=== PATIENT | female | born 1995 | race Caucasian/White ===

== ENCOUNTER 2021-10-09 17:52 | Emergency (ER) | payer MEDICAID, SELFPAY ==
--- NOTE | 2021-10-09 18:00 | HMH.EDUTC ---
[facility] [place] Clinical Impression: Pharyngitis Qualifiers: Pharyngitis/tonsillitis etiology: unspecified etiology Qualified Code(s): J02.9 - Acute pharyngitis, unspecified Otitis media Qualifiers: Otitis media type: suppurative Chronicity: acute Laterality: bilateral Recurrence: non-recurrent Spontaneous tympanic membrane rupture: without spontaneous rupture Qualified Code(s): H66.003 - Acute suppurative otitis media without spontaneous rupture of ear drum, bilateral Contact dermatitis Qualifiers: Contact dermatitis trigger: unspecified trigger Disposition: Home, Self-Care Condition on Discharge: Good Instructions: Middle Ear Infection, DI for Pharyngitis/Tonsillopharyngitis -- Adult, Preventing the Spread of Coronavirus Discharge Instructions Additional Instructions: Drink plenty of fluids. Take tylenol or ibuprofen for pain or fever. Take the medications as directed. Follow up with your regular doctor. GO TO THE ER FOR ANY WORSENING SYMPTOMS The triamcinolone cream is a steroid cream for the rash on your belly. Prescriptions: Brompheniramine/Pseudoephed/Dm [Bromfed Dm Cough Syrup] 5 ml PO Q6HP PRN #240 ml PRN Reason: Cough Transmission Status: Received by [id number] methylPREDNISolone [Medrol] 4 mg PO DIRECTED 6 Days #21 packet Transmission Status: Received by [id number] Triamcinolone Acetonide 1 applicatio TP TIDP PRN 7 Days #1 gm PRN Reason: Itching Transmission Status: Received by [id number] Azithromycin [Z-Anthony 250mg Tab*] 250 mg PO UD DOSE PK #6 tab Transmission Status: Received by [id number] Referrals: Provider,Referral, [Primary Care Provider] - Time of Disposition: 18:35 Medical Decision Making - Medical Records Medical records reviewed: No: I reviewed the patient's medical records. - Buzz Inquiry Pt receiving controlled substance: No Vital Signs: 10/09/21 18:05 10/09/21 18:36 Temperature 98.8 F 98.8 F Temperature Source Oral Pulse Rate 97 H Pulse Rate [Left] 97 H Respiratory Rate 16 16 Blood Pressure 139/75 Blood Pressure [Right Arm] 139/75 Blood Pressure Mean [Right Arm] 96 02 Sat by Pulse Oximetry 98 - Lab Data Lab results reviewed: Yes: I reviewed the patient's lab results. Lab Results 10/09/21 18:00: Group A Strep Rapid Negative Orders (Tests/Meds): ORDERS Category Date Time Status Strep Screen Confirmation Stat Micro 10/09/21 18:00 Received [facility] [place] - General Stated complaint: sore throat, bilateral earache, Time Seen by Provider: 10/09/21 18:23 - History of Present Illness Provider Complaint: She states that for the past 2 days she has had worsening bilateral ear pain, sore throat and she has felt bad. She has a nonproductive cough and chest congestion also. She denies shortness of breath. - Related Data Previous Rx's Medication Instructions Recorded methylprednisolone 4 mg tablets in See Rx Instructions PO PER PKG DIR 01/18/18 a dose pack #21 tab Azithromycin [Z-Anthony 250mg Tab*] 250 mg PO UD DOSE PK #6 tab 10/09/21 Brompheniramine/Pseudoephed/Dm 5 ml PO Q6HP PRN #240 ml 10/09/21 [Bromfed Dm Cough Syrup] Triamcinolone Acetonide 1 applicatio TP TIDP PRN 7 Days #1 10/09/21 gm methylPREDNISolone [Medrol] 4 mg PO DIRECTED 6 Days #21 10/09/21 packet Allergies Allergy/AdvReac Type Severity Reaction Status Date / Time amoxicillin Allergy Verified 10/09/21 18:08 Penicillins Allergy Verified 10/09/21 18:08 [facility] History - Hepatitis A Screen Attestation statement:: This patient has been screened for Hepatitis A risk factors. I have reviewed the patient's past medical history: Yes Comment: none Other Surgeries: Yes: No Previous Surgery - Social History Smoking Status: Current every day smoker Tobacco Type: cigarettes Alcohol Intake: never Substance Use Type: denies use Family Hx:: Cancer ROS Obtained: Yes All systems reviewed & no ad
[2021-10-09 18:05] VITALS: BP 139/75; PULSE 97; RESP 16; TEMP 37.1; O2SAT 98; BMI 36.8
[2021-10-09 18:18] LABS: Strep Scrn Group A (Rapid) Negative (Negative)
[2021-10-09 18:36] VITALS: BP 139/75; PULSE 97; RESP 16; TEMP 37.1
== END 2021-10-09 18:43 | disposition home or self-care (01) ==
PROVIDERS: Emergency Provider Nurse Practitioner Family
DX: J02.9 Acute pharyngitis, unspecified (principal); H66.003 Acute suppurative otitis media without spontaneous rupture of ear drum, bilateral
CPT/HCPCS: 87430; 99212; G0463

== ENCOUNTER 2021-12-17 10:17 | Emergency (ER) | payer MEDICAID, SELFPAY ==
[2021-12-17 10:34] VITALS: BP 129/77; PULSE 66; RESP 17; TEMP 36.8; O2SAT 98; BMI 40.3
--- NOTE | 2021-12-17 10:49 | EXP.UTC ---
Discharge Plan Disposition Patient Disposition: Home, Self-Care Condition: Good Prescriptions Prescriptions: New prednisone 20 mg tablet 20 mg PO BID Qty: 10 0RF benzonatate 200 mg capsule 200 mg PO TID PRN (Reason: cough) Qty: 20 0RF No Action methylprednisolone [Medrol (Anthony)] 4 mg tablets,dose pack See Rx Instructions PO PER PKG DIR Qty: 21 0RF Dose Instruction: PO PER PKG DIR Rx Instructions: PO PER PKG DIR azithromycin 250 MG tablet 250 mg PO UD DOSE PK Qty: 6 0RF Rx Instructions: Take two (2) tablets today, then one (1) tablet days #2 thru #5 methylprednisolone 4 MG tablets,dose pack 4 mg PO DIRECTED 6 Days Qty: 21 0RF jaokwdqqrwcubxw-yitkflnyu-EZ 118 ML syrup 5 ml PO Q6HP PRN (Reason: Cough) Qty: 240 0RF triamcinolone acetonide 15 GM cream 1 applicatio TP TIDP PRN (Reason: Itching) 7 Days Qty: 1 0RF Rx Instructions: 0.025% Referrals Follow up/Referrals: Provider,Referral, MD [Primary Care Provider] - See instructions Activity Restrictions/Add. Instructions Additional Instructions/Restrictions: You have been tested for COVID19. Please isolate yourself as if you are positive until test results received. Current CDC guidelines are quarantine X 5 days from onset of symptoms, with an additional 5 days of mask wearing at all times. If you have difficulty breathing, signs of dehydration, etc please seek treatment at ER. Clinical Impressions Clinical Impression: Close exposure to 2019 novel coronavirus Stand Alone Forms Stand Alone Forms: Work/School Release Instructions Patient Instructions: DI for COVID-19 (Suspected or Confirmed ) Discharge ED Provider: Rachelle Meraz [facility] [place] HPI General Stated complaint: Cough, covid exposure, covid test Mode of Arrival: Ambulatory Source of Information: Patient Limitations: No Limitations Time Seen by Provider: 12/17/21 11:03 Description of Symptoms (Recalled from Triage Doc. by RN): pt comes in with c/o productive cough, fever, headache, shortness of air. symptoms began 2 days ago. pts son has a lung infection and pts mother in law has covid. HEENT Symptoms (Recalled from RN notes): Yes Resp Symptoms (Recalled from RN notes): Yes Skin Symptoms (Recalled from RN notes): No MS Symptoms (Recalled from RN notes): No Functional Status (Recalled from RN notes): n/a History of Present Illness Provider Complaint: Cough, congestion, headache x 2 days. No fever. Mother in law has COVID19. Denies nausea, vomiting, diarrhea. Onset (ago): day(s) (2) Relieving factors: none Exacerbating factors: none Associated symptoms: cough and headaches Treatments prior to arrival: none Related Data Previous Rx's Medication Instructions Recorded methylprednisolone 4 mg tablets in See Rx Instructions PO PER PKG DIR 01/18/18 a dose pack (Medrol (Anthony)) #21 tabs azithromycin 250 mg tablet 250 mg PO UD DOSE PK #6 tabs 10/09/21 pulmtuhnnmuwegq-dyweyhtcfkhxxsg-CD 5 ml PO Q6HP PRN Cough #240 mL 10/09/21 2 mg-30 mg-10 mg/5 mL oral syrup methylprednisolone 4 mg tablets in 4 mg PO DIRECTED 6 days #21 10/09/21 a dose pack packets triamcinolone acetonide 0.025 % 1 applicatio topical TIDP PRN 10/09/21 topical cream Itching 7 days ##1 benzonatate 200 mg capsule 200 mg PO TID PRN cough #20 caps 12/17/21 prednisone 20 mg tablet 20 mg PO BID #10 tabs 12/17/21 Allergies Allergy/AdvReac Type Severity Reaction Status Date / Time amoxicillin Allergy Verified 12/17/21 10:45 Penicillins Allergy Verified 12/17/21 10:45 Worker's Comp Is this a Worker's Comp case?: No PFSH PFSH Social History Smoking Status: Current every day smoker tobacco type: cigarettes alcohol intake: never substance use type: denies use current occupational status: employed Travel in the last 8 weeks: None ROS Obtained: Yes All systems reviewed & no additional complaints ex
[2021-12-17 11:14] VITALS: BP 129/77; PULSE 66; RESP 17; TEMP 36.8
== END 2021-12-17 11:15 | disposition home or self-care (01) ==
PROVIDERS: Emergency Provider Physician Assistant
DX: R05.9 Cough, unspecified (principal); Z20.822 Contact with and (suspected) exposure to COVID-19
CPT/HCPCS: 99283; C9803; U0003; U0005

== ENCOUNTER 2022-01-02 02:27 | Emergency (ER) | payer MEDICAID, SELFPAY ==
[2022-01-02 02:29] VITALS: BP 146/103; PULSE 89; RESP 16; TEMP 36.9; O2SAT 99; BMI 40.3
[2022-01-02 03:29] LABS: Appearance,Urine SL CLOUDY (Clear); Bilirubin,Urine Negative (Negative); Blood, Urine Negative (Negative); Color,Urine YELLOW (Yellow); Glucose,Urine (UA) Negative (Negative); Ketones,Urine Negative (Negative); Leukocyte Esterase,Urine TRACE (Negative); Microscopic, Urine URINE MICROSCOPIC (MICROSCOPIC); Nitrate,Urine Negative (Negative); Protein,Urine Negative (Negative); Specific Gravity, Urine 1.025 (1.005-1.030); Urobilinogen,Urine 0.2 EU/dl (0.2)
--- NOTE | 2022-01-02 03:29 | PC.NURSE ---
MD AT BEDSIDE FOR EVAL AND PERFORMED I&D. PT TOLERATED WELL. DRAINAGE NOTED.
--- NOTE | 2022-01-02 03:30 | HMH.EDGENADL ---
Discharge Plan Disposition Patient Disposition: Home, Self-Care Condition: Good Prescriptions Prescriptions: New sulfamethoxazole-trimethoprim 800-160 mg tablet 1 tab PO BID 7 Days Qty: 14 0RF No Action methylprednisolone [Medrol (Anthony)] 4 mg tablets,dose pack See Rx Instructions PO PER PKG DIR Qty: 21 0RF Dose Instruction: PO PER PKG DIR Rx Instructions: PO PER PKG DIR azithromycin 250 MG tablet 250 mg PO UD DOSE PK Qty: 6 0RF Rx Instructions: Take two (2) tablets today, then one (1) tablet days #2 thru #5 methylprednisolone 4 MG tablets,dose pack 4 mg PO DIRECTED 6 Days Qty: 21 0RF fryfssxuahtkqgk-dohqzsoek-EE 118 ML syrup 5 ml PO Q6HP PRN (Reason: Cough) Qty: 240 0RF triamcinolone acetonide 15 GM cream 1 applicatio TP TIDP PRN (Reason: Itching) 7 Days Qty: 1 0RF Rx Instructions: 0.025% prednisone 20 mg tablet 20 mg PO BID Qty: 10 0RF benzonatate 200 mg capsule 200 mg PO TID PRN (Reason: cough) Qty: 20 0RF Referrals Follow up/Referrals: Provider,Referral, MD [Primary Care Provider] - See instructions Activity Restrictions/Add. Instructions Additional Instructions/Restrictions: At this time was felt you are safe to be discharged home. If new or worsening symptoms please do not hesitate to return the emergency department. Please take antibiotics as prescribed. 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 Clinical Impressions Clinical Impression: Abscess of vagina Instructions Patient Instructions: DI for Urinary Tract Infection (UTI), DI for Urinary Tract Infection in Children Discharge ED Provider: Konstantin Hansen General Adult HPI General Chief complaint: Urogenital-Female Stated complaint: Spot on area of vigina with pain Time Seen by Provider: 01/02/22 03:00 Mode of Arrival: Ambulatory Limitations: No Limitations Description of Symptoms (Recalled from ER Triage Doc. by RN): PT REPORTS SORE TENDER AREA ON THE LEFT SIDE OF HER INNER LABIA. PT STATES PAIN BEGAN TWO DAYS AGO AND HAS ONLY GOT WORSE History of Present Illness HPI narrative: Patient is a 26-year-old female with no pertinent past medical history presents emergency department for evaluation of vulvar swelling. Onset was acute, occurring over the last 48 hours. Originally it was the size of a pea however it has become exquisitely tender to palpation causing her to present for further evaluation. Last menstrual cycle is unknown. Denies other acute complaints at this time. Moderate to severe in intensity. Related Data Previous Rx's Medication Instructions Recorded methylprednisolone 4 mg tablets in See Rx Instructions PO PER PKG DIR 01/18/18 a dose pack (Medrol (Anthony)) #21 tabs azithromycin 250 mg tablet 250 mg PO UD DOSE PK #6 tabs 10/09/21 sqfsyoyqblmsdmy-bmtmcztyndnxiys-NP 5 ml PO Q6HP PRN Cough #240 mL 10/09/21 2 mg-30 mg-10 mg/5 mL oral syrup methylprednisolone 4 mg tablets in 4 mg PO DIRECTED 6 days #21 10/09/21 a dose pack packets triamcinolone acetonide 0.025 % 1 applicatio topical TIDP PRN 10/09/21 topical cream Itching 7 days ##1 benzonatate 200 mg capsule 200 mg PO TID PRN cough #20 caps 12/17/21 prednisone 20 mg tablet 20 mg PO BID #10 tabs 12/17/21 sulfamethoxazole 800 1 tab PO BID 7 days #14 tabs 01/02/22 mg-trimethoprim 160 mg tablet Allergies Allergy/AdvReac Type Severity Reaction Status Date / Time amoxicillin Allergy Verified 12/17/21 10:45 Penicillins Allergy Verified 12/17/21 10:45 [facility] Social History (Updated 12/17/21 @ 11:10 by SVETLANA Faulkner) Smoking Status: Current every day smoker tobacco type: cigarettes alcohol intake: never substance use type: denies use current occupational status: employed Travel in the last 8 weeks: None ROS Obtained: Yes All systems reviewed & no additional complaints except as documented Physical Exam General General appearance: alert and in no appa
[2022-01-02 03:31] LABS: Urine Pregnancy, HCG Qual. Negative (Negative)
[2022-01-02 03:32] LABS: Amorphous Sediment,Urine 2+ /lpf; Mucus,Urine Trace /lpf
[2022-01-02 04:08] VITALS: BP 140/80; PULSE 82; RESP 16; TEMP 36.6; O2SAT 98
== END 2022-01-02 04:11 | disposition home or self-care (01) ==
PROVIDERS: Emergency Provider Emergency Medicine
DX: N76.0 Acute vaginitis (principal)
CPT/HCPCS: 81001; 81025; 99283

== ENCOUNTER 2023-06-14 13:45 | Emergency (ER) | payer MEDICAID, SELFPAY ==
[2023-06-14] VITALS (10 sets, daily range): BP systolic 114–151; BP diastolic 67–96; PULSE 66–94; RESP 13–25; TEMP 36.8–36.9; O2SAT 95–97; BMI 56.5
--- NOTE | 2023-06-14 13:49 | ECG_ITS ---
APPROVED REPORT Exam: Resting ECG HR:87 bpm ECG Measurements Heart Rate 87 AXES SC 157 P 24 QRSd 93 QRS 57 QT 376 T 31 QTc 420 Conclusion SINUS RHYTHM NONSPECIFIC T-WAVE ABNORMALITY BORDERLINE ECG UNCONFIRMED REPORT Electronically signed by : Carlos Rose, 06/14/2023 15:07:11
--- NOTE | 2023-06-14 14:01 | ED_ITS ---
Discharge Plan Disposition Patient Disposition: Xfer Other Condition: Good Prescriptions Prescriptions: No Action methylprednisolone [Medrol (Anthony)] 4 mg tablets,dose pack See Rx Instructions PO PER PKG DIR Qty: 21 0RF Dose Instruction: PO PER PKG DIR Rx Instructions: PO PER PKG DIR azithromycin 250 MG tablet 250 mg PO UD DOSE PK Qty: 6 0RF Rx Instructions: Take two (2) tablets today, then one (1) tablet days #2 thru #5 methylprednisolone 4 MG tablets,dose pack 4 mg PO DIRECTED 6 Days Qty: 21 0RF gxkprvlhsvpoqru-[id number] 118 ML syrup 5 ml PO Q6HP PRN (Reason: Cough) Qty: 240 0RF triamcinolone acetonide 15 GM cream 1 applicatio TP TIDP PRN (Reason: Itching) 7 Days Qty: 1 0RF Rx Instructions: 0.025% prednisone 20 mg tablet 20 mg PO BID Qty: 10 0RF benzonatate 200 mg capsule 200 mg PO TID PRN (Reason: cough) Qty: 20 0RF sulfamethoxazole-trimethoprim 800-160 mg tablet 1 tab PO BID 7 Days Qty: 14 0RF Referrals Follow up/Referrals: Provider,Referral, MD [Referring] - See instructions Clinical Impressions Clinical Impression: Calculus of gallbladder with acute cholecystitis Stand Alone Forms Stand Alone Forms: Transfer Record - ED Discharge ED Provider: Gwendolyn Abdul HPI <SVETLANA Horton - Last Filed: 06/14/23 19:37> General Chief Complaint: Chest Pain Stated Complaint: CP Time Seen by Provider: 06/14/23 14:01 Mode of Arrival: Ambulatory Source of Information: Patient Limitations: No Limitations Description of Symptoms (Recalled from ER Triage Doc. by RN): Patient reports midsternal chest pain that started at either 630 or 830 this morning. Denies radiation. History of Present Illness HPI narrative: Patient presents with a chief complaint of substernal chest pain that began earlier this morning and has been persistent all day. Patient states her pain at worst was 7 out of 10 and is currently the same. Patient denies shortness of breath cough fever chills hemoptysis hematochezia melena nausea vomiting diarrhea diaphoresis. Patient reports that it hurts to swallow but has not actually had a loss of appetite. Patient denies close contact with known ill persons. Related Data Previous Rx's Medication Instructions Recorded methylprednisolone 4 mg tablets in See Rx Instructions PO PER PKG DIR 01/18/18 a dose pack (Medrol (Anthony)) #21 tabs azithromycin 250 mg tablet 250 mg PO UD DOSE PK #6 tabs 10/09/21 shrhehlrgcwpwov-ofiobdukplblfcv-HN 5 ml PO Q6HP PRN Cough #240 mL 10/09/21 2 mg-30 mg-10 mg/5 mL oral syrup methylprednisolone 4 mg tablets in 4 mg PO DIRECTED 6 days #21 10/09/21 a dose pack packets triamcinolone acetonide 0.025 % 1 applicatio topical TIDP PRN 10/09/21 topical cream Itching 7 days ##1 benzonatate 200 mg capsule 200 mg PO TID PRN cough #20 caps 12/17/21 prednisone 20 mg tablet 20 mg PO BID #10 tabs 12/17/21 sulfamethoxazole 800 1 tab PO BID 7 days #14 tabs 01/02/22 mg-trimethoprim 160 mg tablet Allergies Allergy/AdvReac Type Severity Reaction Status Date / Time amoxicillin Allergy Verified 12/17/21 10:45 buprenorphine [From Suboxone] Allergy Verified 06/14/23 13:51 naloxone [From Suboxone] Allergy Verified 06/14/23 13:51 Penicillins Allergy Verified 12/17/21 10:45 PFSH <SVETLANA Horton - Last Filed: 06/14/23 19:37> [facility] Disclaimer: The information contained in this section may have been updated after the patient was seen, as this information can be updated by other users. Social History (Updated 12/17/21 @ 11:10 by SVETLANA Faulkner) Smoking Status: Current every day smoker tobacco type: cigarettes alcohol intake: never substance use type: denies use current occupational status: employed Travel in the last 8 weeks: None <SVETLANA Horton - Last Filed: 06/14/23 19:37> ROS Obtained: Yes Systems reviewed as appropriate & no additional complaints except as documented Physical Exam <SVETLANA Horton - Last Filed: 06/14/23 19:37> General General appearance: alert and in no apparent distress Head Head exam: atraumatic and normal inspection Eye Eye exam: Present normal appearance, PERRL and EOMI ENT ENT exam: Present normal exam, normal oropharynx and mucous membranes moist Neck Neck exam: Present normal inspection, full ROM and trachea midline; Absent lymphadenopathy Chest Chest inspection: Present normal inspection, symmetric chest wall rise and tenderness (Distal end of the mid sternum/epigastrium) Respiratory Respiratory exam: Present normal lung sounds bilaterally; Absent respiratory distress, wheezes or accessory muscle use Cardiovascular Cardiovascular exam: Present regular rate, normal rhythm and normal heart sounds Abdominal Exam Abdominal exam: Present soft (Obese), tenderness (There is tenderness in the epigastrium but appears to be more under the sternum than in the abdomen) and normal bowel sounds; Absent guarding or rebound Extremities Exam Extremities exam: Present normal inspection and full ROM Back Exam Back exam: Present normal inspection and full ROM Neurological Exam Neurological exam: Present alert and oriented X3 Psychiatric Psychiatric exam: Present normal affect and normal mood Skin Skin exam: Present warm, dry and normal color HEART Score <SVETLANA Horton - Last Filed: 06/14/23 19:37> HEART Score HEART Score assessment performed?: No History (anamnesis): Slightly suspicious Critical Care <SVETLANA Horton - Last Filed: 06/14/23 19:37> Critical Care Time Critical Care Time: No Medical Decision Making <SVETLANA Horton - Last Filed: 06/14/23 19:37> Medical Records Medical records reviewed: Yes I reviewed the patient's medical records. Buzz Inquiry Pt receiving controlled substance: No Vital Signs Vital Signs: 06/14/23 13:45 06/14/23 14:04 06/14/23 14:31 Temperature 98.2 F Temperature Source Oral Pulse Rate 94 H 86 Pulse Rate [Radial] 92 H Respiratory Rate 18 13 22 Blood Pressure 145/91 H 119/78 Blood Pressure [Right Arm] 151/85 H Blood Pressure Mean [Right Arm] 107 Blood Pressure Source [Right Arm] Automatic Cuff Blood Pressure Position [Right Arm] Sitting 02 Sat by Pulse Oximetry 97 97 95 Oxygen Delivery Method Room Air Room Air Room Air 06/14/23 14:38 06/14/23 19:01 06/14/23 19:44 Temperature 98.4 F Temperature Source Oral Pulse Rate 86 76 81 Pulse Rate [Radial] Respiratory Rate 18 25 H 16 Blood Pressure 114/74 119/96 H 119/96 H Blood Pressure [Right Arm] Blood Pressure Mean [Right Arm] Blood Pressure Source [Right Arm] Blood Pressure Position [Right Arm] 02 Sat by Pulse Oximetry 97 95 Oxygen Delivery Method Room Air 06/14/23 20:01 06/14/23 20:31 06/14/23 21:01 Temperature Temperature Source Pulse Rate 76 79 73 Pulse Rate [Radial] Respiratory Rate 21 15 22 Blood Pressure 124/68 124/71 124/67 Blood Pressure [Right Arm] Blood Pressure Mean [Right Arm] Blood Pressure Source [Right Arm] Blood Pressure Position [Right Arm] 02 Sat by Pulse Oximetry 96 97 96 Oxygen Delivery Method 06/14/23 21:31 Temperature Temperature Source Pulse Rate 66 Pulse Rate [Radial] Respiratory Rate 18 Blood Pressure 137/89 Blood Pressure [Right Arm] Blood Pressure Mean [Right Arm] Blood Pressure Source [Right Arm] Blood Pressure Position [Right Arm] 02 Sat by Pulse Oximetry 97 Oxygen Delivery Method Lab Data Lab results reviewed: Yes I reviewed the patient's lab results. Labs: Lab Results 06/14/23 14:00: WBC 13.9 H, RBC 4.68, Hgb 13.6, Hct 42.1, MCV 90.1, MCH 29.1, MCHC 32.3, RDW 14.2, Plt Count 292, MPV 7.9, Neut % (Auto) 71.5, Lymph % (Auto) 20.6, [place] % (Auto) 5.1, Eos % (Auto) 1.7, Baso % (Auto) 1.0, Neut # (Auto) 9.9 H, Lymph # (Auto) 2.9, [place] # (Auto) 0.7, Eos # (Auto) 0.2, Baso # (Auto) 0.1, PT 11.4, INR 1.06, D-Dimer 0.38, Sodium 139, Potassium 3.8, Chloride 105, Carbon Dioxide 28, Anion Gap 9.8, BUN 14, Creatinine 0.60, Estimated Creat Clear 133, Estimated GFR 121, Est GFR ( Amer) 146, Glucose 96, Calcium 8.1 L, Magnesium 2.2, Total Bilirubin 0.6, AST 30, ALT 33, Alkaline Phosphatase 108, Troponin I < 0.01, Total Protein 7.0, Albumin 3.9, Globulin 3.1, Albumin/Globulin Ratio 1.3, Serum HCG, Qual Negative 06/14/23 14:19: SARS-CoV-2 (PCR) Not detected, Influenza A Untype (PCR) Not detected, Influenza Type B (PCR) Not detected 06/14/23 15:19: Lactate 3.0 H 06/14/23 17:03: Troponin I < 0.01 06/14/23 19:35: Lactate 1.4 06/14/23 14:00 06/14/23 14:00 Response Orders (Tests/Meds): ED MEDICATIONS Generic Name Dose Route Start Last Admin Trade Name Freq PRN Reason Stop Dose Admin Levofloxacin/Dextrose 500 mg in 100 mls @ 100 mls/hr 06/14/23 19:45 06/14/23 20:49 Levaquin 500mg/100ml Premix IV 06/24/23 19:44 100 mls/hr Q24H LATISHA Administration Discontinued Medications Generic Name Dose Route Start Last Admin Trade Name Freq PRN Reason Stop Dose Admin Acetaminophen 1,000 mg 06/14/23 14:09 06/14/23 14:16 Acetaminophen 1,000mg/100ml Vial IV 06/14/23 14:10 1,000 mg ONCE ONE Administration Belladonna Alkaloids 60 ml 06/14/23 14:09 06/14/23 14:16 Belladonna Alkaloids 60 Ml Ml PO 06/14/23 14:10 60 ml ONCE ONE Administration Hydromorphone HCl 1 mg 06/14/23 20:26 Hydromorphone 2mg/Ml Syringe IV 06/14/23 20:27 ONCE ONE Metronidazole 500 mg in 100 mls @ 100 mls/hr 06/14/23 19:32 06/14/23 19:47 Flagyl 500mg/100ml Ivpb IV 06/14/23 20:31 100 mls/hr ONCE ONE Administration Iopamidol 75 ml 06/14/23 16:39 06/14/23 16:42 Iopamidol-370 (76%);100ml Bottle IV 06/14/23 16:40 75 ml ONCE ONE Administration Ketorolac Tromethamine 15 mg 06/14/23 14:09 06/14/23 14:16 Ketorolac 30mg/Ml Vial IV 06/14/23 14:10 15 mg ONCE ONE Administration Sodium Chloride 10 ml 06/14/23 16:39 06/14/23 16:42 Sodium Chloride 0.9% 10ml Syr (Rad Only) IV 06/14/23 16:40 10 ml ONCE ONE Administration ORDERS Category Date Time Status CT abdomen pelvis w con Stat Cat Scan 06/14/23 15:[address] chest w con Stat Cat Scan 06/14/23 15:53 Completed Chest XR -- portable [XR chest portable] Stat Exams 06/14/23 14:09 Completed CBC w/Auto Diff [Complete Blood Count Auto Diff] Stat Lab 06/14/23 14:00 Completed CMP [Comprehensive Metabolic Panel] Stat Lab 06/14/23 14:00 Completed D-Dimer Stat Lab 06/14/23 14:00 Completed HCG Qualitative, Serum Stat Lab 06/14/23 14:00 Completed INR [Prothrombin Time INR] Stat Lab 06/14/23 14:00 Completed Lactic Acid Follow Up (RFLX 1) Stat Lab 06/14/23 19:35 Completed Lactic Acid Stat Lab 06/14/23 15:19 Completed Magnesium Stat Lab 06/14/23 14:00 Completed Rapid PCR Covid and Flu A/B Stat Lab 06/14/23 14:19 Completed Trop I [Troponin I] Stat Lab 06/14/23 14:00 Completed Troponin I Q3H Lab 06/14/23 17:03 Completed MDM Narrative Medical Decision Narrative: In summary patient is a 27-year-old female who presents to the emergency department for evaluation of substernal chest pain began this morning around 6 to 7 AM. Patient is hemodynamically stable upon arrival, and afebrile. Physical exam is remarkable for tenderness to palpation over the lower third of her sternum/epigastrium with normal breath sounds normal heart sounds on auscultation. Main of her physical exam is nonfocal and unremarkable other than morbid obesity. Differential diagnosis includes ACS versus PE versus gastrointestinal cause versus pancreatitis. Patient denies alcohol or drug ingestion.. Initial workup will be conducted with hematologic labs twelve-lead EKG plain from chest x-ray.. Initial interventions include acetaminophen Toradol GI cocktail. Initial workup reviewed by me shows elevated white count with left shift, and elevated lactate and the remainder of her hematologic labs are unremarkable. Plain film chest x-ray that I informally interpreted shows no acute processes radiologist read pending. Her CT scan of her chest abdomen pelvis shows a distended gallbladder with what appears to be a stone in the gallbladder neck. Transaminases are normal.. Upon repeat evaluation patient had only minimal resolution of her symptoms after acetaminophen and Toradol.. Given this I had a discussion with Dr. Quintero of general surgery who felt that they could not care for this patient here due to the patient's BMI. I then discussed with Dr. Kay of general surgery at the [facility] who accepted the patient and requested that hospital medicine admit and I then spoke to Dr. Villa the hospital service who agreed for admission. I notified the patient and the patient verbalized understanding and agreement. <Gwendolyn Abdul, DO - Last Filed: 06/15/23 00:09> Vital Signs Vital Signs: 06/14/23 13:45 06/14/23 14:04 06/14/23 14:31 Temperature 98.2 F Temperature Source Oral Pulse Rate 94 H 86 Pulse Rate [Radial] 92 H Respiratory Rate 18 13 22 Blood Pressure 145/91 H 119/78 Blood Pressure [Right Arm] 151/85 H Blood Pressure Mean [Right Arm] 107 Blood Pressure Source [Right Arm] Automatic Cuff Blood Pressure Position [Right Arm] Sitting 02 Sat by Pulse Oximetry 97 97 95 Oxygen Delivery Method Room Air Room Air Room Air 06/14/23 14:38 06/14/23 19:01 06/14/23 19:44 Temperature 98.4 F Temperature Source Oral Pulse Rate 86 76 81 Pulse Rate [Radial] Respiratory Rate 18 25 H 16 Blood Pressure 114/74 119/96 H 119/96 H Blood Pressure [Right Arm] Blood Pressure Mean [Right Arm] Blood Pressure Source [Right Arm] Blood Pressure Position [Right Arm] 02 Sat by Pulse Oximetry 97 95 Oxygen Delivery Method Room Air 06/14/23 20:01 06/14/23 20:31 06/14/23 21:01 Temperature Temperature Source Pulse Rate 76 79 73 Pulse Rate [Radial] Respiratory Rate 21 15 22 Blood Pressure 124/68 124/71 124/67 Blood Pressure [Right Arm] Blood Pressure Mean [Right Arm] Blood Pressure Source [Right Arm] Blood Pressure Position [Right Arm] 02 Sat by Pulse Oximetry 96 97 96 Oxygen Delivery Method 06/14/23 21:31 Temperature Temperature Source Pulse Rate 66 Pulse Rate [Radial] Respiratory Rate 18 Blood Pressure 137/89 Blood Pressure [Right Arm] Blood Pressure Mean [Right Arm] Blood Pressure Source [Right Arm] Blood Pressure Position [Right Arm] 02 Sat by Pulse Oximetry 97 Oxygen Delivery Method Lab Data Labs: Lab Results 06/14/23 14:00: WBC 13.9 H, RBC 4.68, Hgb 13.6, Hct 42.1, MCV 90.1, MCH 29.1, MCHC 32.3, RDW 14.2, Plt Count 292, MPV 7.9, Neut % (Auto) 71.5, Lymph % (Auto) 20.6, [place] % (Auto) 5.1, Eos % (Auto) 1.7, Baso % (Auto) 1.0, Neut # (Auto) 9.9 H, Lymph # (Auto) 2.9, [place] # (Auto) 0.7, Eos # (Auto) 0.2, Baso # (Auto) 0.1, PT 11.4, INR 1.06, D-Dimer 0.38, Sodium 139, Potassium 3.8, Chloride 105, Carbon Dioxide 28, Anion Gap 9.8, BUN 14, Creatinine 0.60, Estimated Creat Clear 133, Estimated GFR 121, Est GFR ( Amer) 146, Glucose 96, Calcium 8.1 L, Magnesium 2.2, Total Bilirubin 0.6, AST 30, ALT 33, Alkaline Phosphatase 108, Troponin I < 0.01, Total Protein 7.0, Albumin 3.9, Globulin 3.1, Albumin/Globulin Ratio 1.3, Serum HCG, Qual Negative 06/14/23 14:19: SARS-CoV-2 (PCR) Not detected, Influenza A Untype (PCR) Not detected, Influenza Type B (PCR) Not detected 06/14/23 15:19: Lactate 3.0 H 06/14/23 17:03: Troponin I < 0.01 06/14/23 19:35: Lactate 1.4 Response Orders (Tests/Meds): ED MEDICATIONS Generic Name Dose Route Start Last Admin Trade Name Freq PRN Reason Stop Dose Admin Levofloxacin/Dextrose 500 mg in 100 mls @ 100 mls/hr 06/14/23 19:45 06/14/23 20:49 Levaquin 500mg/100ml Premix IV 06/24/23 19:44 100 mls/hr Q24H LATISHA Administration Discontinued Medications Generic Name Dose Route Start Last Admin Trade Name Freq PRN Reason Stop Dose Admin Acetaminophen 1,000 mg 06/14/23 14:09 06/14/23 14:16 Acetaminophen 1,000mg/100ml Vial IV 06/14/23 14:10 1,000 mg ONCE ONE Administration Belladonna Alkaloids 60 ml 06/14/23 14:09 06/14/23 14:16 Belladonna Alkaloids 60 Ml Ml PO 06/14/23 14:10 60 ml ONCE ONE Administration Hydromorphone HCl 1 mg 06/14/23 20:26 Hydromorphone 2mg/Ml Syringe IV 06/14/23 20:27 ONCE ONE Metronidazole 500 mg in 100 mls @ 100 mls/hr 06/14/23 19:32 06/14/23 19:47 Flagyl 500mg/100ml Ivpb IV 06/14/23 20:31 100 mls/hr ONCE ONE Administration Iopamidol 75 ml 06/14/23 16:39 06/14/23 16:42 Iopamidol-370 (76%);100ml Bottle IV 06/14/23 16:40 75 ml ONCE ONE Administration Ketorolac Tromethamine 15 mg 06/14/23 14:09 06/14/23 14:16 Ketorolac 30mg/Ml Vial IV 06/14/23 14:10 15 mg ONCE ONE Administration Sodium Chloride 10 ml 06/14/23 16:39 06/14/23 16:42 Sodium Chloride 0.9% 10ml Syr (Rad Only) IV 06/14/23 16:40 10 ml ONCE ONE Administration ORDERS Category Date Time Status CT abdomen pelvis w con Stat Cat Scan 06/14/23 15:[address] chest w con Stat Cat Scan 06/14/23 15:53 Completed Chest XR -- portable [XR chest portable] Stat Exams 06/14/23 14:09 Completed CBC w/Auto Diff [Complete Blood Count Auto Diff] Stat Lab 06/14/23 14:00 Completed CMP [Comprehensive Metabolic Panel] Stat Lab 06/14/23 14:00 Completed D-Dimer Stat Lab 06/14/23 14:00 Completed HCG Qualitative, Serum Stat Lab 06/14/23 14:00 Completed INR [Prothrombin Time INR] Stat Lab 06/14/23 14:00 Completed Lactic Acid Follow Up (RFLX 1) Stat Lab 06/14/23 19:35 Completed Lactic Acid Stat Lab 06/14/23 15:19 Completed Magnesium Stat Lab 06/14/23 14:00 Completed Rapid PCR Covid and Flu A/B Stat Lab 06/14/23 14:19 Completed Trop I [Troponin I] Stat Lab 06/14/23 14:00 Completed Troponin I Q3H Lab 06/14/23 17:03 Completed MDM Narrative Medical Decision Narrative: In summary patient is a 27-year-old female who presents to the emergency department for evaluation of substernal chest pain began this morning around 6 to 7 AM. Patient is hemodynamically stable upon arrival, and afebrile. Physical exam is remarkable for tenderness to palpation over the lower third of her sternum/epigastrium with normal breath sounds normal heart sounds on auscultation. Main of her physical exam is nonfocal and unremarkable other than morbid obesity. Differential diagnosis includes ACS versus PE versus gastrointestinal cause versus pancreatitis. Patient denies alcohol or drug ingestion.. Initial workup will be conducted with hematologic labs twelve-lead EKG plain from chest x-ray.. Initial interventions include acetaminophen Toradol GI cocktail. Initial workup reviewed by me shows elevated white count with left shift, and elevated lactate and the remainder of her hematologic labs are unremarkable. Plain film chest x-ray that I informally interpreted shows no acute processes radiologist read pending. Her CT scan of her chest abdomen pelvis shows a distended gallbladder with what appears to be a stone in the gallbladder neck. Transaminases are normal.. Upon repeat evaluation patient had only minimal resolution of her symptoms after acetaminophen and Toradol.. Given this I had a discussion with Dr. Quintero of general surgery who felt that they could not care for this patient here due to the patient's BMI. I then discussed with Dr. Kay of general surgery at the [facility] who accepted the patient and requested that hospital medicine admit and I then spoke to Dr. Villa the hospital service who agreed for admission. I notified the patient and the patient verbalized understanding and agreement. I was consulted by the SATINDER, and we discussed the complexity of the problems being addressed. I approved the treatment and management plan for this patient's care in the emergency department, thus performing a substantive portion of the medical decision making. Gwendolyn Abdul DO
--- NOTE | 2023-06-14 14:09 | XR_ITS ---
FINAL REPORT CLINICAL HISTORY: Chest pain midsternal pain COMPARISON: None FINDINGS: A single portable view of the chest was obtained. The heart size and pulmonary vascularity are within normal limits. The mediastinum is within normal limits. No acute pulmonary abnormality is identified. The bony thorax is intact. IMPRESSION: No active cardiopulmonary disease. Reviewed, Interpreted and Dictated by Rajiv Salinas III, MD Transcribed by Mena Ellis Authenticated and [facility]
[2023-06-14] MEDS: KETOROLAC 30MG/ML VIAL 15 MG IV (14:16)
[2023-06-14] MEDS: BELLADONNA ALKALOIDS 60 ML ML PO (14:16)
[2023-06-14] MEDS: ACETAMINOPHEN 1,000MG/100ML VIAL 1000 MG IV (14:16)
[2023-06-14 14:28] LABS: Coronavirus 19, PCR Not Detected (NotDetected); Influenza A, PCR Not Detected (NotDetected); Influenza B, PCR Not Detected (NotDetected)
[2023-06-14 14:28] LABS: Basophils # 0.1 K/mm3 (0-0.2); Eosinophils # 0.2 K/mm3 (0.0-0.4); Eosinophils % 1.7 % (0.1-12.0); Hematocrit 42.1 % (37.0-47.0); Hemoglobin 13.6 g/dL (12.2-16.2); Lymphocytes # 2.9 K/mm3 (0.7-4.5); Lymphocytes % 20.6 % (10-50); Mean Corpuscular HGB Conc 32.3 g/dL (31.8-35.4); Mean Corpuscular Hemoglobin 29.1 pg (27.0-31.2); Mean Corpuscular Volume 90.1 fl (81-99); Mean Platelet Volume 7.9 fl (7.4-10.4); Monocytes # 0.7 K/mm3 (0.1-1.0); Monocytes % 5.1 % (1.7-9.3); Neutrophils # 9.9 K/mm3 (1.8-7.8); Neutrophils % 71.5 % (37.0-80.0); Platelet Count 292 K/mm3 (142-424); Red Blood Count 4.68 M/mm3 (4.20-5.40); Red Cell Distribution Width 14.2 % (11.5-17.5); White Blood Count 13.9 K/mm3 (4.8-10.8)
[2023-06-14 14:33] LABS: Alanine Aminotransferase 33 U/L (12-78); Albumin Level 3.9 g/dl (3.5-5.0); Albumin/Globulin Ratio 1.3 (1.1-1.8); Alkaline Phosphatase 108 U/L (38-126); Anion Gap 9.8 mEq/L (5-15); Aspartate Amino Transferase 30 U/L (14-36); Bilirubin,Total 0.6 mg/dl (0.2-1.3); Blood Urea Nitrogen 14 mg/dl (7-17); Calcium 8.1 mg/dl (8.4-10.2); Carbon Dioxide 28 mmol/L (22.0-30.0); Chloride 105 mmol/L (98-107); Creatinine Clearance Estimated 133 mL/min (50-200); Estimated Glomerular Filt Rate 121 ml/min (>60); GFR (African American) 146 ML/MIN (>60); Globulin 3.1 g/dL (1.3-3.2); Glucose 96 mg/dl (74-100); INR 1.06 (0.9-1.1); Magnesium 2.2 mg/dl (1.6-2.3); Potassium 3.8 mmoL/L (3.5-5.1); Prothrombin Time 11.4 seconds (10.1-12.5); Sodium 139 mmol/L (136-145)
[2023-06-14 14:40] LABS: D-Dimer 0.38 ug/mL (0.0-0.5)
[2023-06-14 14:48] LABS: Troponin I < 0.01 ng/ml (0.00-0.034)
[2023-06-14 14:55] LABS: HCG Qualitative, Serum Negative (Negative)
--- NOTE | 2023-06-14 15:53 | CT_ITS ---
PROCEDURE INFORMATION: Exam: CT Abdomen And Pelvis With Contrast Exam date and time: 06/14/2023 4:39 PM Age: 27 years old Clinical indication: Other: Chest pain, dysphagia TECHNIQUE: Imaging protocol: Computed tomography of the abdomen and pelvis with contrast. Radiation optimization: All CT scans at this facility use at least one of these dose optimization techniques: automated exposure control; mA and/or kV adjustment per patient size (includes targeted exams where dose is matched to clinical indication); or iterative reconstruction. Contrast material: ISOVUE; Contrast volume: 75 ml; Contrast route: IV; COMPARISON: 1. CT CHEST W CON 06/14/2023 4:39 PM 2. CR XR CHEST PORTABLE 06/14/2023 2:15 PM FINDINGS: Liver: There is possible hepatic steatosis, evaluation is limited secondary to contrast enhancement. Gallbladder and bile ducts: Gallbladder is mildly distended with a 2 cm stone noted near the gallbladder neck, correlate with any concern for cholecystitis. Pancreas: Normal. Spleen: Normal. Adrenal glands: The adrenal glands appear normal. Kidneys and ureters: There are no soft tissue renal masses or hydronephrosis. Stomach and bowel: The stomach, small bowel, and colon are well-distended and show no evidence of wall thickening, masses, or obstruction. Appendix: No evidence of appendicitis. Intraperitoneal space: Unremarkable. Vasculature: The abdominal aorta and its major branches appear normal without evidence of aneurysm or stenosis. There are pelvic phleboliths. Lymph nodes: There are mildly prominent but nonenlarged and nonspecific retroperitoneal nodes. Mildly prominent nodes in the central mesentery, nonspecific. Urinary bladder: Unremarkable as visualized. Reproductive: No acute process. Bones/joints: The visualized osseous structures of the abdomen and pelvis appear normal for patient age. Soft tissues: Unremarkable. Other findings: Please see the dedicated interpretation of the thorax for findings in that region. IMPRESSION: 1. Gallbladder is mildly distended with a 2 cm stone noted near the gallbladder neck, correlate with any concern for cholecystitis. 2. Please see the dedicated interpretation of the thorax for findings in that region.
--- NOTE | 2023-06-14 15:53 | CT_ITS ---
PROCEDURE INFORMATION: Exam: CT Chest With Contrast; Diagnostic Exam date and time: 06/14/2023 4:39 PM Age: 27 years old Clinical indication: Sternal or substernal pain; Additional info: Chest pain, dysphagia TECHNIQUE: Imaging protocol: Diagnostic computed tomography of the chest with contrast. Radiation optimization: All CT scans at this facility use at least one of these dose optimization techniques: automated exposure control; mA and/or kV adjustment per patient size (includes targeted exams where dose is matched to clinical indication); or iterative reconstruction. Contrast material: ISOVUE; Contrast volume: 75 ml; Contrast route: IV; COMPARISON: 1. CR XR CHEST PORTABLE 06/14/2023 2:[address] ABDOMEN PELVIS W CON 06/14/2023 4:39 PM FINDINGS: Lungs: There are scattered calcified granulomas in the lungs which most likely reflect prior granulomatous disease. Pleural spaces: Pleural surfaces are smooth, and there are no pleural effusions, pneumothoraces, or pleural plaques noted. Heart: The heart size is within normal limits, and the pericardium appears clear with no signs of pericardial effusion or thickening. Coronary arteries: The coronary arteries are not well-visualized in this non-gated study, but nosignificant calcification is seen. Mediastinal space: The mediastinum appears unremarkable with no evidence of masses, lymphadenopathy, or mediastinal widening. Hilar structures including the major bronchi and vessels appear intact. Lymph nodes: There are calcified mediastinal lymph nodes likely reflecting prior granulomatous disease. Vasculature: The aorta and major blood vessels are of normal caliber. Intraperitoneal space: Please see the dedicated interpretation of abdomen and pelvis for findings in that region. Bones/joints: Osseous structures within the field of view, including the ribs and the visualized portions of the thoracic spine, are normal in appearance. There is no evidence of acute fractures, lytic lesions, or sclerotic foci. The osseous structures appear age-appropriate, with no abnormal curvature or deformity. Soft tissues: Unremarkable. IMPRESSION: 1. No dense parenchymal consolidation, pleural effusion, or pneumothorax. 2. Please see the dedicated interpretation of abdomen and pelvis for findings in that region.
[2023-06-14] MEDS: SODIUM CHLORIDE 0.9% 10ML SYR (RAD ONLY) 10 ML IV (16:42)
[2023-06-14] MEDS: IOPAMIDOL-370 (76%);100ML BOTTLE 75 ML IV (16:42)
[2023-06-14 17:40] LABS: Troponin I < 0.01 ng/ml (0.00-0.034)
--- NOTE | 2023-06-14 17:48 | PC.NURSE ---
CALLED [facility] [place] [facility] FOR EMERGENT CARE PER ER PA WAITING CALL BACK
[2023-06-14 19:23] LABS: Reflex Lactic Add Lactic Reflex
[2023-06-14] MEDS: METRONIDAZ/SOD CHL 500 MG/100 ML PIGGYBACK 100 MG IV (19:47)
--- NOTE | 2023-06-14 19:54 | PC.NURSE ---
Spoke with midlevel provider and confirmed that we can cancel 3rd troponin at this time. Notified Lab.
[2023-06-14 19:58] LABS: Lactic Acid Follow Up (RFLX 1) 1.4 mmol/L (0.7-2.1)
[2023-06-14] MEDS: LEVOFLOXACIN/D5W 500 MG/100 ML PIGGYBACK 100 MG IV (20:49)
--- NOTE | 2023-06-14 20:56 | PC.NURSE ---
Patient up to recliner at this time, patient reports increased comfort with chair after being in bed for multiple hours. Patient currently reports pain as 4/10 and describes as a discomfort more than a pain at this time. Patient does not wish to have additional pain medication at this time. Updated patient to notify if pain changes or increases.
--- NOTE | 2023-06-15 00:31 | PC.NURSE ---
in room talking with patient at this time.
[2023-06-15] MEDS: MORPHINE 4MG/ML SYRINGE 4 MG IV (00:40)
== END 2023-06-15 01:36 | disposition other institution (70) ==
PROVIDERS: Physician Assistant; Emergency Provider Emergency Medicine; PCP Nurse Practitioner
DX: R07.2 Precordial pain (principal); K80.00 Calculus of gallbladder with acute cholecystitis without obstruction; F17.210 Nicotine dependence, cigarettes, uncomplicated; E66.01 Morbid (severe) obesity due to excess calories; Z68.43 Body mass index [BMI] 50.0-59.9, adult
CPT/HCPCS: 36415; 71045; 71260; 74177; 80053; 83605; 83735; 84484; 84703; 85025; 85378; 85610; 87636; 93005; 96365; 96367; 96375; 99285; J0131; J1956; Q9967

== ENCOUNTER 2024-05-30 01:09 | Emergency (ER) | payer MEDICAID, SELFPAY ==
[2024-05-30 01:10] VITALS: BP 154/89; PULSE 120; RESP 20; TEMP 37; O2SAT 98; BMI 56.5
--- NOTE | 2024-05-30 01:20 | ED_ITS ---
Discharge Plan Disposition Patient Disposition: Home, Self-Care Prescriptions Prescriptions: New ondansetron HCl 4 mg tablet 4 mg PO Q8H PRN (Reason: nausea and vomiting) 5 Days Qty: 30 0RF No Action methylprednisolone [Medrol (Anthony)] 4 mg tablets,dose pack See Rx Instructions PO PER PKG DIR Qty: 21 0RF Dose Instruction: PO PER PKG DIR Rx Instructions: PO PER PKG DIR azithromycin 250 MG tablet 250 mg PO UD DOSE PK Qty: 6 0RF Rx Instructions: Take two (2) tablets today, then one (1) tablet days #2 thru #5 methylprednisolone 4 MG tablets,dose pack 4 mg PO DIRECTED 6 Days Qty: 21 0RF gtosdkiwublmqtv-fkbdcqovv-KE 118 ML syrup 5 ml PO Q6HP PRN (Reason: Cough) Qty: 240 0RF triamcinolone acetonide 15 GM cream 1 applicatio TP TIDP PRN (Reason: Itching) 7 Days Qty: 1 0RF Rx Instructions: 0.025% prednisone 20 mg tablet 20 mg PO BID Qty: 10 0RF benzonatate 200 mg capsule 200 mg PO TID PRN (Reason: cough) Qty: 20 0RF sulfamethoxazole-trimethoprim 800-160 mg tablet 1 tab PO BID 7 Days Qty: 14 0RF Referrals Follow up/Referrals: Natasah Meraz APRN [Primary Care Provider] - See instructions Activity Restrictions/Add. Instructions Additional Instructions/Restrictions: Please follow-up with your primary care provider. Please return to the emergency department if you develop any new or worsening symptoms or become concerned for your health. Clinical Impressions Clinical Impression: Nausea vomiting and diarrhea Stand Alone Forms Stand Alone Forms: Work/School Release Instructions Patient Instructions: DI for Diarrhea and Traveler's Diarrhea -- Adult, DI for Diarrhea and Traveler's Diarrhea -- Child, DI for Nausea -- Adult, DI for Nausea -- Child Print Language Print Language: [place] Discharge ED Provider: Jaret Shipman Adult HPI General Chief complaint: Nausea/Vomiting/Diarrhea Stated complaint: nausea, vomiting, weakness Time Seen by Provider: 05/30/24 01:18 Mode of Arrival: Ambulatory Source of Information: Patient Limitations: No Limitations Description of Symptoms (Recalled from ER Triage Doc. by RN): PT C/O NVD X8 HOURS. DENIES PAIN/FEVER History of Present Illness HPI narrative: 28-year-old female with history of depression presents for nausea vomiting and diarrhea for the last 8 hours. Reports that is nonbloody nonbilious. Reports she is able to keep down some mik gerald sometimes. She denies any abdominal pain. She reports this happened last month as well. Denies any fever at home. Does not think she is but is not sure. Related Data Previous Rx's ?Medication ?Instructions ?Recorded methylprednisolone 4 mg tablets in See Rx Instructions PO PER PKG DIR 01/18/18 a dose pack (Medrol (Anthony)) #21 tabs azithromycin 250 mg tablet 250 mg PO UD DOSE PK #6 tabs 10/09/21 tlfunahtlnxmqsv-qauygxijunkxuch-FE 5 ml PO Q6HP PRN Cough #240 mL 10/09/21 2 mg-30 mg-10 mg/5 mL oral syrup methylprednisolone 4 mg tablets in 4 mg PO DIRECTED 6 days #21 10/09/21 a dose pack packets triamcinolone acetonide 0.025 % 1 applicatio topical TIDP PRN 10/09/21 topical cream Itching 7 days ##1 benzonatate 200 mg capsule 200 mg PO TID PRN cough #20 caps 12/17/21 prednisone 20 mg tablet 20 mg PO BID #10 tabs 12/17/21 sulfamethoxazole 800 1 tab PO BID 7 days #14 tabs 01/02/22 mg-trimethoprim 160 mg tablet ondansetron HCl 4 mg tablet 4 mg PO Q8H PRN nausea and 05/30/24 vomiting 5 days #30 tabs Allergies Allergy/AdvReac Type Severity Reaction Status Date / Time amoxicillin Allergy Unknown Verified 05/30/24 01:18 allergy reaction buprenorphine (From Suboxone) Allergy Unknown Verified 05/30/24 01:18 allergy reaction naloxone (From Suboxone) Allergy Unknown Verified 05/30/24 01:18 allergy reaction Penicillins Allergy Unknown Verified 05/30/24 01:18 allergy reaction PFSH PFSH Disclaimer: The information contained in this section may have been updated after the patient was seen, as this information can be updated by other users. Social History (Updated 12/17/21 @ 11:10 by SVETLANA Faulkner) Smoking Status: Current every day smoker tobacco type: cigarettes alcohol intake: never substance use type: denies use current occupational status: employed Travel in the last 8 weeks: None Have you lived/traveled outside [place] in past 30 days?: No Contact w/someone who lives/traveled outside [place] past 30 days?: No Exposure to someone with infectious disease in past 14 days?: No Do you have a fever (greater than 100.4 F or 38 C)?: No Have you tested positive for COVID-19: No Exposed to someone with COVID-19 in past 14 days?: No Do you have a sore throat?: No Do you have a cough?: No Do you have any weakness?: Yes Do you have any diarrhea?: No Are you experiencing any unusual bleeding?: No Do you have any muscle aches/pain?: No Do you have any abdominal pain?: No Are you experiencing loss of taste or smell?: No ROS Obtained: Yes All systems reviewed & no additional complaints except as documented Physical Exam General General appearance: alert and in no apparent distress Head Head exam: atraumatic and normocephalic Eye Eye exam: Present normal appearance, PERRL and EOMI ENT ENT exam: Present normal oropharynx and normal external ear exam Neck Neck exam: Present normal inspection and full ROM Chest Chest inspection: Present normal inspection and symmetric chest wall rise; Absent tenderness Respiratory Respiratory exam: Present normal lung sounds bilaterally; Absent respiratory distress Cardiovascular Cardiovascular exam: Present regular rate and normal rhythm Abdominal Exam Abdominal exam: Present soft; Absent distention, tenderness or guarding Extremities Exam Extremities exam: Present normal inspection; Absent edema or joint swelling Back Exam Back exam: Present normal inspection; Absent tenderness Neurological Exam Neurological exam: Present alert and oriented X3; Absent motor sensory deficit Psychiatric Psychiatric exam: Present normal affect and normal mood Skin Skin exam: Present warm, dry and normal color Lymphatic Lymphatic Findings: no adenopathy Medical Decision Making Medical Records Medical records reviewed: Yes I reviewed the patient's medical records. Screening: Per USPSTF and CDC recommendations, given the prevalence of disease in our region, it is our hospital?s policy to screen for HIV and viral Hepatitis for all patients aged 18 and over and those with ongoing risk factors. Buzz Inquiry Pt receiving controlled substance: No Buzz was queried for this patient: No Vital Signs: 05/30/24 01:10 05/30/24 01:59 Temperature 98.6 F 98.3 F Temperature Source Oral Pulse Rate 87 Pulse Rate [Apical] 120 H Respiratory Rate 20 20 Blood Pressure 154/89 H Blood Pressure [Right Arm] 154/89 H Blood Pressure Mean [Right Arm] 110 02 Sat by Pulse Oximetry 98 Oxygen Delivery Method Room Air Room Air Lab Data Lab results reviewed: Yes I reviewed the patient's lab results. Lab Results 05/30/24 01:20: WBC 13.3 H, RBC 5.39, Hgb 15.1, Hct 46.7, MCV 86.6, MCH 28.0, MCHC 32.3, RDW 13.3, Plt Count 298, MPV 10.5 H, Neut % (Auto) 95.3 H, Lymph % (Auto) 1.5 L, [place] % (Auto) 2.5, Eos % (Auto) 0.0 L, Baso % (Auto) 0.2, Neut # (Auto) 12.7 H, Lymph # (Auto) 0.2 L, [place] # (Auto) 0.3, Eos # (Auto) 0.0, Baso # (Auto) 0.0, Total Counted 100, Neutrophils % (Manual) 92 H, Lymphocytes % (Manual) 5 L, Monocytes % (Manual) 3, Platelet Estimate Normal, RBC Morphology Normal, Sodium 140, Potassium 4.3, Chloride 104, Carbon Dioxide 28, Anion Gap 12.3, BUN 18 H, Creatinine 0.90, Estimated Creat Clear 88, Estimated GFR 75, Est GFR ( Amer) 91, Glucose 122 H, Calcium 9.4, Magnesium 1.6, Total Bilirubin 1.0, AST 32, ALT 52, Alkaline Phosphatase 81, Total Protein 8.7 H, Albumin 4.9, Globulin 3.8 H, Albumin/Globulin Ratio 1.3, Lipase 46, Serum HCG, Qual Negative 05/30/24 01:20 05/30/24 01:20 Orders (Tests/Meds): ED MEDICATIONS Discontinued Medications Generic Name Dose Route Start Last Admin Trade Name Freq PRN Reason Stop Dose Admin Lactated Ringer's 1,000 mls @ 999 mls/hr 05/30/24 01:30 05/30/24 01:24 Lactated Ringer's 1000 Ml Bag IV 05/30/24 02:30 999 mls/hr .Q1H1M LATISHA Administration Ondansetron HCl 4 mg 05/30/24 01:18 05/30/24 01:25 Ondansetron 4mg/2ml Vial IV 05/30/24 01:19 4 mg ONCE ONE Administration ORDERS Category Date Time Status CBC w/Auto Diff [Complete Blood Count Auto Diff] Stat Lab 05/30/24 01:20 Completed CMP [Comprehensive Metabolic Panel] Stat Lab 05/30/24 01:20 Completed HCG Qualitative, Serum Stat Lab 05/30/24 01:20 Completed Lipase Stat Lab 05/30/24 01:20 Completed Magnesium Stat Lab 05/30/24 01:20 Completed Medical Decision Narrative: 28-year-old female without significant past medical history presents for a few hours of nausea vomiting and diarrhea. History was obtained via interactive discussion with patient. On arrival, patient is [afebrile, hemodynamically stable, satting appropriately, alert, oriented x4, GCS 15], moving all extremities spontaneously. Full physical exam performed and significant for no significant abdominal tenderness Differential includes but is not limited to food poisoning, gastroenteritis, dehydration. Patient was given 1 L IV fluid bolus, IV Zofran for symptomatic management and correction of underlying abnormalities. Workup initiated including CBC CMP mag test. On re-evaluation, patient [remains afebrile, HD stable.] Laboratory workup independently interpreted by me and significant for negative test, mild leukocytosis, no renal dysfunction.. CT imaging was considered, but deemed unnecessary due to history and exam. Given patient history, exam and workup, patient's presentation most likely represents gastroenteritis. Patient was discharged in stable condition return precautions and prescription for Zofran.. Procedures Risk/Benefits of Procedure(s) Were Explained: Yes Critical Care Critical Care Time Critical Care Time: No
[2024-05-30] MEDS: LACTATED RINGERS 1000ML 1,000 ML 999 ML IV (01:24)
[2024-05-30] MEDS: ONDANSETRON 4MG/2ML VIAL 4 MG IV (01:25)
--- NOTE | 2024-05-30 01:28 | PC.NURSE ---
Rounds were performed and patient stated no needs.
[2024-05-30 01:35] LABS: Basophils % 0.2 % (0.1-2.0); Hematocrit 46.7 % (37.0-47.0); Hemoglobin 15.1 g/dL (12.2-16.2); Lymphocytes # 0.2 K/mm3 (0.7-4.5); Lymphocytes % 1.5 % (10-50); Mean Corpuscular HGB Conc 32.3 g/dL (31.8-35.4); Mean Corpuscular Volume 86.6 fl (81-99); Mean Platelet Volume 10.5 fl (7.4-10.4); Monocytes # 0.3 K/mm3 (0.1-1.0); Monocytes % 2.5 % (1.7-9.3); Neutrophils # 12.7 K/mm3 (1.8-7.8); Neutrophils % 95.3 % (37.0-80.0); Platelet Count 298 K/mm3 (142-424); Red Blood Count 5.39 M/mm3 (4.20-5.40); Red Cell Distribution Width 13.3 % (11.5-17.5); White Blood Count 13.3 K/mm3 (4.8-10.8)
[2024-05-30 01:39] LABS: MANUAL DIFFERENTIAL MANUAL DIFFERENTIAL (MANUAL DIFF)
[2024-05-30 01:43] LABS: HCG Qualitative, Serum Negative (Negative)
[2024-05-30 01:45] LABS: Alanine Aminotransferase 52 U/L (12-78); Albumin Level 4.9 g/dl (3.5-5.0); Albumin/Globulin Ratio 1.3 (1.1-1.8); Alkaline Phosphatase 81 U/L (38-126); Anion Gap 12.3 mEq/L (5-15); Aspartate Amino Transferase 32 U/L (14-36); Blood Urea Nitrogen 18 mg/dl (7-17); Calcium 9.4 mg/dl (8.4-10.2); Carbon Dioxide 28 mmol/L (22.0-30.0); Chloride 104 mmol/L (98-107); Creatinine Clearance Estimated 88 mL/min (50-200); Estimated Glomerular Filt Rate 75 ml/min (>60); GFR (African American) 91 ML/MIN (>60); Globulin 3.8 g/dL (1.3-3.2); Glucose 122 mg/dl (74-100); Potassium 4.3 mmoL/L (3.5-5.1); Sodium 140 mmol/L (136-145); Total Protein,Serum 8.7 g/dl (6.3-8.2)
[2024-05-30 01:59] VITALS: BP 154/89; PULSE 87; RESP 20; TEMP 36.8; O2SAT 99
[2024-05-30 01:59] LABS: Lipase 46 U/L (23-300); Magnesium 1.6 mg/dl (1.6-2.3)
[2024-05-30 02:36] LABS: Lymphocytes % 5 % (10-50); Monocytes % 3 % (2-9); Neutrophils % 92 % (42-76); Platelet Estimate Normal; RBC Morphology Normal; Total Cells Counted 100
== END 2024-05-30 02:06 | disposition home or self-care (01) ==
PROVIDERS: Emergency Provider Emergency Medicine; PCP Nurse Practitioner
DX: R11.2 Nausea with vomiting, unspecified (principal); R19.7 Diarrhea, unspecified; F17.210 Nicotine dependence, cigarettes, uncomplicated
CPT/HCPCS: 80053; 83690; 83735; 84703; 85007; 85025; 85027; 96361; 96374; 99284; J2405; J7120